=== PATIENT | female | born 1945 | race Caucasian/White ===

== ENCOUNTER 2020-12-04 13:33 | Emergency (ER) | payer MEDICARE, OTHER ==
[~2020-12-04 13:33] MED LIST: ATIVAN0.5 MG PO; KEFLEX CAP 500500 MG PO
[2020-12-04 16:56] LABS: HEMOGLOBIN 12.5 gm/dl (12.3-15.3); RED BLOOD COUNT 4.36 M/UL (4.00-5.10); WHITE BLOOD COUNT 13.8 K/UL (4.5-11.0)
[2020-12-04 17:18] LABS: BUN/CREATININE RATIO 32 (0-10)
[2020-12-04] MEDS ORDERED: AUGMENTIN 875-1 EACH PO (19:00)
[2020-12-04] MEDS ORDERED: ZOFRAN ODT 4 MG4 MG PO (19:00)
== END 2020-12-04 20:17 | disposition home or self-care (01) ==
LOC: ER1 13:33
PROVIDERS: Emergency Medicine
DX: K57.33 Diverticulitis of large intestine without perforation or abscess with bleeding (principal); I10 Essential (primary) hypertension; E11.9 Type 2 diabetes mellitus without complications; F17.200 Nicotine dependence, unspecified, uncomplicated
CPT/HCPCS: 80053; 82272; 83690; 85025; 85610; 85730; 96365; 96375; 96376; 99284; J0295; J2270; J2405; Q9967

== ENCOUNTER → 2021-03-10 | Outpatient (CLI) | payer MEDICARE, OTHER ==
[~2021-03-10] MED LIST changes: +AUGMENTIN 875-1 EACH PO; +ZOFRAN ODT 4 MG4 MG PO
== END ==
LOC: HEART CORB 09:46
DX: R06.00 Dyspnea, unspecified (principal); R07.2 Precordial pain; I25.10 Atherosclerotic heart disease of native coronary artery without angina pectoris; E78.5 Hyperlipidemia, unspecified; J44.9 Chronic obstructive pulmonary disease, unspecified; I12.9 Hypertensive chronic kidney disease with stage 1 through stage 4 chronic kidney disease, or unspecified chronic kidney disease; E11.22 Type 2 diabetes mellitus with diabetic chronic kidney disease; N18.9 Chronic kidney disease, unspecified; I27.20 Pulmonary hypertension, unspecified; E11.36 Type 2 diabetes mellitus with diabetic cataract; Z91.040 Latex allergy status; Z95.5 Presence of coronary angioplasty implant and graft
CPT/HCPCS: 78452; A9502; J2785

== ENCOUNTER 2021-03-17 08:21 | Emergency (ER) | payer MEDICARE, OTHER | END 2021-03-17 10:52 | disposition home or self-care (01) | LOC: ER1 08:21 | DX: S30.0XXA Contusion of lower back and pelvis, initial encounter (principal); I10 Essential (primary) hypertension; E11.9 Type 2 diabetes mellitus without complications; F17.210 Nicotine dependence, cigarettes, uncomplicated; W07.XXXA Fall from chair, initial encounter; Y92.000 Kitchen of unspecified non-institutional (private) residence as the place of occurrence of the external cause | CPT/HCPCS: 72220; 99283 ==

== ENCOUNTER 2021-12-27 00:21 | Emergency (ER) | payer MEDICARE, OTHER ==
[2021-12-27 00:54] LABS: RED BLOOD COUNT 5.46 M/UL (4.00-5.10); WHITE BLOOD COUNT 8.5 K/UL (4.5-11.0)
== END 2021-12-27 01:55 | disposition home or self-care (01) ==
LOC: ER1 00:21
PROVIDERS: Physician Assistant
DX: R06.02 Shortness of breath (principal); I25.2 Old myocardial infarction; Z20.822 Contact with and (suspected) exposure to COVID-19; E11.9 Type 2 diabetes mellitus without complications; J44.9 Chronic obstructive pulmonary disease, unspecified; G43.909 Migraine, unspecified, not intractable, without status migrainosus; I25.10 Atherosclerotic heart disease of native coronary artery without angina pectoris; F17.210 Nicotine dependence, cigarettes, uncomplicated; E78.5 Hyperlipidemia, unspecified; Z79.84 Long term (current) use of oral hypoglycemic drugs
CPT/HCPCS: 0240U; 71045; 80053; 82550; 82553; 83874; 83880; 84484; 85025; 85379; 85610; 85730; 99283

== ENCOUNTER → 2022-02-25 | Outpatient (CLI) | payer MEDICARE, OTHER | LOC: HEART 5 14:54 | DX: J44.9 Chronic obstructive pulmonary disease, unspecified (principal) | CPT/HCPCS: 94060; 94729 ==

== ENCOUNTER → 2022-03-25 | Outpatient (CLI) | payer MEDICARE, OTHER ==
[~2022-03-25] MED LIST changes: +ALBUTEROL2.5 MG/3 M INH; +AMLODIPINE BESYL5 MG PO; +ASPIRIN CHEWABL81 MG PO; +CITALOPRAM HBR20 MG PO; +CLARITIN10 M2 PO; +CRESTOR 10 MG T10 MG PO; +FENOFIBRATE160 MG PO; +FLONASE 0.05% N16 GM; +GABAPENTIN400 MG PO; +GLUCOPHAGE 500500 MG PO; +HYDROCODON-ACE1 EAC6 PO; +JANUVIA50 MG PO; +LEVOTHYROXINE150 MC1 PO; +LINZESS145 MCG PO; +MYRBETRIQ25 MG PO; +NITROSTAT0.4 MG SL; +OMEPRAZOLE40 MG PO; +PROAIR DIGIHAL90 MCG INH; +RANOLAZINE ER1000 MG PO; +SENNA8.6 MG PO; +SINEQUAN CAP 5050 MG PO; +TENORMIN100 MG PO; +THEOPHYLLINE A300 MG PO; +TOPAMAX100 MG PO; +VISTARIL 25 MG25 MG PO; +VITAMIN C500 M4 PO; +VITAMIN D250 MCG PO
[2022-03-25 06:52] LABS: HEMOGLOBIN 14.5 gm/dl (12.3-15.3); RED BLOOD COUNT 4.91 M/UL (4.00-5.10); WHITE BLOOD COUNT 7.9 K/UL (4.5-11.0)
== END ==
LOC: CT 06:15
PROVIDERS: Internal Medicine Pulmonary Disease
DX: C34.11 Malignant neoplasm of upper lobe, right bronchus or lung (principal); Z79.84 Long term (current) use of oral hypoglycemic drugs; Z79.899 Other long term (current) drug therapy
CPT/HCPCS: 36415; 71045; 85027; 85610; J3010